=== PATIENT | female | born 1945 | race Caucasian/White ===

== ENCOUNTER → 2017-02-27 | Outpatient (CLI) | payer MEDICARE ==
--- NOTE | 2017-02-27 10:02 | RAD ---
DATE: 02/27/2017 EXAM: MAMMO YAZMIN SCREENING BILATERAL Bilateral digital screening mammography to include digital breast tomosynthesis (3D mammography) HISTORY: Screening study. COMPARISON: 02/27/2016 This study was interpreted with the benefit of Computerized Aided Detection (CAD). FINDINGS: Digital MLO and CC mammograms of both breasts were obtained. Additionally digital breast tomosynthesis (3D mammography) images of both breasts in the MLO and CC projections were performed. Comparison study is dated 02/27/2016. The breast parenchyma is heterogeneously dense which can obscure a lesion on mammography (breast density code C). No spiculated mass is seen. No malignant appearing calcification or area of architectural distortion is noted. Benign-appearing calcifications are seen within both breasts. A well-defined small intramammary lymph nodes within left breast, unchanged. Digital breast tomosynthesis images demonstrate no spiculated mass or malignant appearing calcification. Since the previous examination there has been no significant interval change. IMPRESSION: BI-RADS Category 1, negative. There is no mammographic evidence of malignancy. Routine yearly screening mammography is recommended for follow-up. BI-RADS CATEGORY: 1 NEGATIVE RECOMMENDED FOLLOW-UP: 12M 12 MONTH FOLLOW-UP PQRS compliance statement: Patient information was entered into a reminder system with a target due date 02/27/2018 for the next mammogram. Mammography is a sensitive method for finding small breast cancers, but it does not detect them all and is not a substitute for careful clinical examination. A negative mammogram does not negate a clinically suspicious finding and should not result in delay in biopsying a clinically suspicious abnormality. "Our facility is accredited by the [employer] Mammography [employer]."
== END | disposition home or self-care (01) ==
LOC: MAMMO 07:59
PROVIDERS: ATTEND Physician Assistant Medical
DX: Z12.31 Encounter for screening mammogram for malignant neoplasm of breast (principal)
CPT/HCPCS: 77063; G0202; 77067

== ENCOUNTER → 2018-03-02 | Outpatient (CLI) | payer MEDICARE ==
--- NOTE | 2018-03-03 16:42 | RAD ---
3d digital tomography Bilateral History: Routine screening Technique: Bilateral 3d digital tomographic views were obtained. In addition, CAD - computer aided detection was utilized. Comparison: 02/27/2017 02/27/2016 02/27/2015 12/03/2012. Findings: Breast Tissue Density B : The breast tissue is composed of mixed fatty and fibroglandular tissue. There are no suspicious masses, microcalcifications or areas of architectural distortion. Impression: No suspicious findings. Recommendation: In the absence of new clinical symptoms or change in physical exam, annual screening mammography is recommended. BI-RADS Category 1: Negative. The patient will receive a letter with the results in the mail. A mammogram does not have 100% sensitivity and therefore a negative imaging study should not delay further work up of a suspicious abnormality. Patient information is entered into the [facility] reminder system using [employer] with a target due date for the next screening mammogram. The patient will receive a reminder. "Our facility is accredited by the [employer] Mammography [employer]."
== END | disposition home or self-care (01) ==
LOC: MAMMO 14:21
PROVIDERS: ATTEND Physician Assistant Medical
DX: Z12.31 Encounter for screening mammogram for malignant neoplasm of breast (principal)
CPT/HCPCS: 77067

== ENCOUNTER → 2018-09-07 | Outpatient (CLI) | payer MEDICARE ==
--- NOTE | 2018-09-07 09:49 | RAD ---
Lumbar spine, 5 views, 09/07/2018: HISTORY: Pain There is partial sacralization of L5. The lumbar vertebral heights are well-maintained. No fracture or subluxation is evident. There are mild scattered marginal spurs. There are mild degenerative changes involving scattered facet joints. The paraspinous soft tissues are unremarkable. IMPRESSION: 1. 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 2. Mild scattered degenerative changes. 3. No acute bony abnormality is detected. Electronically signed by: Heri Mena MD (09/07/2018 9:46 AM) [facility]
== END | disposition home or self-care (01) ==
LOC: RAD 08:39
PROVIDERS: ATTEND Physician Assistant Medical
DX: M47.896 Other spondylosis, lumbar region (principal); M43.26 Fusion of spine, lumbar region
CPT/HCPCS: 72110

== ENCOUNTER → 2018-12-16 | Outpatient (CLI) | payer MEDICARE ==
[2018-12-16 13:37] LABS: BASO % 1 % (0-3); EOS # 0.1 x10^3/uL (0.0-0.7); EOS % 1 % (0-3); HEMATOCRIT 37.5 % (36.0-47.0); HEMOGLOBIN 12.2 g/dL (12.0-15.5); LYMPH # 1.7 x10^3/uL (1.0-4.8); LYMPH % 32 % (24-48); MEAN CORPUSCULAR HEMOGLOBIN 28 pg (25-35); MEAN CORPUSCULAR HGB CONC 33 g/dL (31-37); MEAN CORPUSCULAR VOLUME 87 fL (79-100); MONO # 0.4 x10^3/uL (0.0-1.1); MONO % 8 % (0-9); NEUT % 58 % (31-73); PLATELET COUNT 269 x10^3/uL (140-400); RED BLOOD COUNT 4.32 x10^6/uL (3.50-5.40); RED CELL DISTRIBUTION WIDTH 13.2 % (11.5-14.5); WHITE BLOOD COUNT 5.3 x10^3/uL (4.0-11.0)
[2018-12-16 13:48] LABS: ALBUMIN 3.9 g/dL (3.4-5.0); ALBUMIN/GLOBULIN RATIO 1.3 (1.0-1.7); CALCIUM 9.1 mg/dL (8.5-10.1); CREATININE 1.1 mg/dL (0.6-1.0); GFR 48.7; POTASSIUM 3.6 mmol/L (3.5-5.1); TOTAL BILIRUBIN 0.4 mg/dL (0.2-1.0)
[2018-12-17 14:01] LABS: FREE T4 0.91 ng/dL (0.76-1.46); THYROID STIM HORMONE (TSH) 2.079 uIU/mL (0.358-3.740)
== END | disposition home or self-care (01) ==
LOC: LAB 12:20
PROVIDERS: ATTEND Physician Assistant Medical
DX: F03.90 Unspecified dementia, unspecified severity, without behavioral disturbance, psychotic disturbance, mood disturbance, and anxiety (principal)
CPT/HCPCS: 36415; 80053; 84439; 84443; 84481; 85025

== ENCOUNTER 2019-07-08 12:37 | Emergency (ER) | payer MEDICARE ==
[~2019-07-08] VITALS: Ht 165.1 cm; Wt 55.3 kg
--- NOTE | 2019-07-08 13:08 | PHYS DOC ---
Past History Past Medical History: Bronchitis, Dementia Past Surgical History: No Surgical History Smoking: Non-smoker Alcohol Use: None Drug Use: None Adult General Chief Complaint Chief Complaint: NAUSEA/VOMITING/DIARRHEA HPI HPI Patient is a 74-year-old female who presents with nausea, vomiting, and diarrh ea. Patient accidentally received an extra 10 mg Aricept dose this morning. Patient had taken one of her Aricept on her own and had not informed the nurse who was administering the medicines. No blood in the stool or emesis. Patient denies any pain. Last vomiting was approximately 40 minutes prior to arrival. No travel.[] Review of Systems Review of Systems Constitutional: Denies fever or chills [] Eyes: Denies change in visual acuity, redness, or eye pain [] HENT: Denies nasal congestion or sore throat [] Respiratory: Denies cough or shortness of breath [] Cardiovascular: No chest pain or palpitations[] GI: See history of present illness[] : Denies dysuria or hematuria [] Musculoskeletal: Denies back pain or joint pain [] Integument: Denies rash or skin lesions [] Neurologic: Denies headache, focal weakness or sensory changes [] Endocrine: Denies polyuria or polydipsia [] All other systems were reviewed and found to be within normal limits, except as documented in this note. Physical Exam Physical Exam Constitutional: Well developed, well nourished, no acute distress, non-toxic appearance. [] HENT: Normocephalic, atraumatic, bilateral external ears normal, oropharynx m oist, no oral exudates, nose normal. [] Eyes: PERRLA, EOMI, conjunctiva normal, no discharge. [] Neck: Normal range of motion, no tenderness, supple, no stridor. [] Cardiovascular:Heart rate regular rhythm, no murmur [] Lungs & Thorax: Bilateral breath sounds clear to auscultation [] Abdomen: Bowel sounds normal, soft, no tenderness, no masses, no pulsatile masses. [] Skin: Warm, dry, no erythema, no rash. [] Back: No tenderness, no CVA tenderness. [] Extremities: No tenderness, no cyanosis, no clubbing, ROM intact, no edema. [] Neurologic: Alert and oriented X 2, normal motor function, normal sensory function, no focal deficits noted. [] Psychologic: Affect normal, judgement normal, mood normal. [] EKG EKG [] Radiology/Procedures Radiology/Procedures [] Course & Med Decision Making Course & Med Decision Making Pertinent Labs and Imaging studies reviewed. (See chart for details) Emergency department course: Patient arrived, was placed in bed, and tolerated exam well. Contact was made with poison control. This amount taken his within the maximum daily dosage. Unfortunately vomiting and diarrhea are also side effects of the medication itself. Findings and plan were discussed with patient as well as the home health nurse. All questions were answered. She was discharged in improved condition after receiving a dose of Zofran. Medical decision making: There is no evidence of toxic ingestion. No evidence of oral intake intolerance.[] Dragon Disclaimer Dragon Disclaimer This electronic medical record was generated, in whole or in part, using a voice recognition dictation system. Departure Departure: Impression: Primary Impression: Accidental overdose Disposition: HOME, SELF-CARE Condition: IMPROVED Referrals: BALAJI LOMBARDO (PCP) Follow-up in 2 days Patient Instructions: Nontoxic Ingestion Additional Instructions: Follow-up with your regular doctor in 2 days. Do not take any more Aricept today. Follow dosing instructions starting again tomorrow. Return to the ER if unable to tolerate liquids or any other concerns. Problem Qualifiers Primary Impression: Accidental overdose Encounter type: initial encounter Qualified Codes: T50.901A - Poisoning by unspecified drugs, medicaments and biological substances, accidental (unintentional), initial encounter ANA RIDER DO Jul 08, 2019 13:08
[2019-07-08] MEDS: ONDANSETRON ODT 4 MG TAB.RAPDIS PO ONE (13:26)
[2019-07-08 14:00] VITALS: BP 152/59
== END 2019-07-08 14:00 | disposition home or self-care (01) ==
LOC: ER 12:37
DX: T44.1X1A Poisoning by other parasympathomimetics [cholinergics], accidental (unintentional), initial encounter (principal); R11.2 Nausea with vomiting, unspecified; R19.7 Diarrhea, unspecified; F03.90 Unspecified dementia, unspecified severity, without behavioral disturbance, psychotic disturbance, mood disturbance, and anxiety; Y92.89 Other specified places as the place of occurrence of the external cause
CPT/HCPCS: 99284; Q0162